=== PATIENT | female | born 1970 | race Caucasian/White ===

== ENCOUNTER 2016-10-14 05:45 | Inpatient (IN) | payer OTHER ==
[~2016-10-14] VITALS: Ht 170.2 cm; Wt 94.3 kg
[~2016-10-14 05:45] MED LIST: AMBI10TA PO; LO LTAB PO; NAPR500T PO
[2016-10-14] MEDS ORDERED: LR 1,000 ML IV SCH ×3 (06:00→11:15)
[2016-10-14 06:15] LABS: MEAN CORPUSCULAR HEMOGLOBIN 30.1 pg (27.0-33.0); MEAN CORPUSCULAR HGB CONC 33.9 g/dl (32.0-36.5); MEAN CORPUSCULAR VOLUME 88.8 fl (80.0-96.0); RED CELL DISTRIBUTION WIDTH 12.4 % (11.5-14.5); WHITE BLOOD COUNT 5.6 K/mm3 (4.0-10.0)
[2016-10-14] MEDS ORDERED: ceFAZolin 1GM INJ (J0690) As Ordered ONE (06:15)
[2016-10-14 06:29] LABS: CONTROL LINE HCG INT CTR LINE PRESENT
[2016-10-14] MEDS ORDERED: ROCURONIUM BROMIDE 50 MG/5 ML VIAL As Ordered ONE ×2 (07:14→08:50)
[2016-10-14] MEDS ORDERED: BUPIVACAINE HCL 0.25% 30 ML VIAL As Ordered ONE (07:14)
[2016-10-14] MEDS ORDERED: LIDOCAINE 2% INJ 100 MG/5 ML SDV (FOR ANES.) As Ordered ONE (07:14)
[2016-10-14] MEDS ORDERED: PROPOFOL 200 MG/20 ML VIAL As Ordered ONE (07:14)
[2016-10-14] MEDS ORDERED: MIDAZOLAM INJ 2 MG/2 ML VIAL (J2250) As Ordered ONE (07:15)
[2016-10-14] MEDS ORDERED: fentaNYL 250 MCG/5 ML INJECTION (J3010) As Ordered ONE (07:15)
[2016-10-14] MEDS ORDERED: SCOPOLAMINE 1.5 MG TRANSDERMAL As Ordered ONE (07:19)
[2016-10-14] MEDS ORDERED: ceFAZolin SOD 1 GM in D5W MINI-BAG PLUS 50 ML IV ONE (07:30)
[2016-10-14] MEDS ORDERED: ONDANSETRON 4MG/2ML VIAL (J2405) As Ordered ONE (07:55)
[2016-10-14] MEDS ORDERED: METOCLOPRAMIDE INJ 10MG/2ML VIAL (J2765) As Ordered ONE (07:55)
[2016-10-14] MEDS ORDERED: NEOSTIGMINE 1MG/ML 5 ML SYRINGE (J2710) As Ordered ONE (07:55)
[2016-10-14] MEDS ORDERED: KETOROLAC 60 MG/2 ML VIAL (J1885) As Ordered ONE (07:55)
[2016-10-14] MEDS ORDERED: GLYCOPYRROLATE INJ 0.2 MG/ML 2 ML VIAL As Ordered ONE (07:55)
[2016-10-14] MEDS ORDERED: BUPIVACAINE HCL 0.25% 30 ML VIAL XX ONE (08:05)
[2016-10-14] MEDS ORDERED: dexameTHASONE 4 MG/ML 1ML VIAL (J1100) As Ordered ONE (08:11)
[2016-10-14] MEDS ORDERED: HYDROmorphone HCL 2 MG/ML 1ML VIAL (J1170) As Ordered ONE (08:53)
[2016-10-14] MEDS: DOCUSATE SODIUM 100 MG CAP PO SCH ×2 (09:00→21:22)
[2016-10-14] MEDS ORDERED: METHYLENE BLUE 1% 10 ML VIAL (Q9968) As Ordered ONE (09:39)
[2016-10-14] MEDS ORDERED: HYDROmorphone HCL 1 MG/ML SYRINGE (J1170) IV PRN (10:45)
[2016-10-14] MEDS ORDERED: ONDANSETRON 4MG/2ML VIAL (J2405) IV PRN ×2 (10:45→11:45)
[2016-10-14] MEDS ORDERED: PERCOCET 5MG/325MG TAB PO PRN ×2 (10:45→11:45)
[2016-10-14] MEDS ORDERED: fentaNYL 100 MCG/2 ML INJECTION (J3010) As Ordered ONE (10:56)
[2016-10-14] MEDS: fentaNYL 100 MCG/2 ML INJECTION (J3010) IV PRN ×4 (10:57→11:12)
[2016-10-14] MEDS ORDERED: SCOPOLAMINE 1.5 MG TRANSDERMAL TOP ONE (11:15)
[2016-10-14] MEDS ORDERED: PROMETHAZINE INJ 25 MG/ML VIAL (J2550) IV PRN (11:45)
[2016-10-14 12:30] VITALS: BP 159/79
[2016-10-14] MEDS: PERCOCET 5MG/325MG TAB PO PRN ×2 (12:55→16:35)
[2016-10-14 13:00] VITALS: BP 156/78
[2016-10-14 14:00] VITALS: BP 119/71
[2016-10-14] MEDS: KETOROLAC 30 MG/ML VIAL (J1885) IV SCH ×2 (14:00→20:02)
[2016-10-14] MEDS: LR 1,000 ML IV SCH ×2 (14:53→19:37)
[2016-10-14 15:00] VITALS: BP 131/81
[2016-10-14 17:56] VITALS: BP 144/88
--- NOTE | 2016-10-14 19:49 | RO ---
DATE OF PROCEDURE: 10/14/2016 PREOPERATIVE DIAGNOSES: 1. Symptomatic fibroid uterus. 2. Abnormal uterine bleeding. POSTOPERATIVE DIAGNOSES: 1. Symptomatic fibroid uterus. 2. Abnormal uterine bleeding. PROCEDURES PERFORMED: 1. Diagnostic laparoscopy. 2. Total abdominal hysterectomy. 3. Cystoscopy. SURGEON: Shanti De Los Santos MD POLICY MANAGER: Tyrell Campo MD ANESTHESIA: General endotracheal. ESTIMATED BLOOD LOSS: 300 mL. INTRAVENOUS (IV) FLUIDS: 1100 mL lactated Ringer's. URINE OUTPUT: 300 mL. CONDITION: Stable. COMPLICATIONS: None. SPECIMEN: Uterus, fallopian tubes, cervix. ANTIBIOTICS: Ancef 1 gram IV times one prior to skin incision. INDICATION: The patient is a 46-year-old female with symptomatic fibroid uterus desiring definitive surgical management. FINDINGS: Approximately 12 weeks size multi-fibroid uterus. Normal tubes and ovaries bilaterally. DESCRIPTION OF PROCEDURE: The risks, benefits, indications and alternatives of procedure were reviewed with the patient and informed consent was obtained. The patient was taken to the operating room where general anesthesia was obtained without difficulty. The patient was then placed in the lithotomy position using Bhavin stirrups and the arms were tucked with padding. Exam under anesthesia was performed, significant for the above-noted findings. She was then prepped and draped in the normal sterile fashion and a Rojas catheter was placed. Sterile speculum was placed in the patient's vagina and the cervix was visualized. Single-tooth tenaculum was then used to grasp the anterior lip of the cervix. The VCare uterine manipulator with a colpotomy ring and a vaginal occluder balloon was placed to provide a means for manipulation of the uterus. The speculum was then removed from the vagina. Attention was then turned to the patient's abdomen where a 5 mm skin incision was made in the lower margin of the umbilicus. 5 mm trocar and sleeve were then carefully introduced into the peritoneal cavity under direct visualization at a 90 degree angle while tenting up the abdominal wall. Intraperitoneal placement was confirmed under direct visualization with the laparoscope with entry pressure less than 5 mmHg. The pneumoperitoneum was obtained with several liters of CO2 gas, maximum pressure of 15 mmHg. Upon entry into the peritoneal cavity, structures immediately below the incision were inspected and found to be free of injury. The patient's abdomen and pelvis was notable for the above findings. Two additional port sites including a 5 mm left lower quadrant and 5 mm right lower quadrant port site were placed under direct laparoscopic guidance, stabilizing the uterus with the manipulator. There was an attempt to use the Harmonic scalpel to ligate the round ligaments and develop the bladder flap. However, given the minimal amount of uterine manipulation and due to the large size of the uterus and the large anterior fibroids obstructing the view, the decision was made to proceed to an open procedure. The laparoscope was removed and CO2 gas was removed from the abdomen and all laparoscopic trocars were removed from the abdomen. Attention was then turned to the lower abdomen where a Pfannenstiel skin incision was then made and carried down to the underlying layer of fascia using electrocautery. The fascia was then entered with Bovie cautery and extended bilaterally. The underlying rectus fascia and muscle layers were then in midline. The peritoneum identified, grasped with two hemostats and entered sharply with Metzenbaum scissors. Peritoneal incision was then extended inferiorly using Bovie cautery. A window was created in the avascular plane of the broad ligament below and parallel to IP ligament, above the ureter, the fallopian tube and the utero-ovarian ligaments were then doubly clamped as close as possible to the uterine corpus, transected and suture ligated with #0-Vicryl on both sides. Pedicles were then re-inspected with excellent hemostasis noted. The bladder was then gently dissected off the lower uterine segment and cervix using a sponge stick until the endopelvic fascia was visualized. The uterine arteries were then identified along the lateral aspect of the uterus at the level of the isthmus and skeletonized. The uterine arteries were then doubly clamped, transected and suture ligated on both sides. Hemostasis was assured. The cardinal ligaments were then clamped, transected and suture ligated bilaterally. Finally the uterosacral ligaments were clamped, transected and suture ligated bilaterally. Hemostasis was noted. Curved clamps were placed across the vagina just under the cervix and the uterus and cervix were amputated using Geovanny scissors. The anterior posterior vaginal cuff edges were then grasped with Manjula clamps. The vaginal cuff angles were closed and transfixed to the ipsilateral uterosacral and cardinal ligaments. The remainder of the cuff was closed using #0-Vicryl in an interrupted fashion with care given to incorporate the anterior pubocervical fascia and the posterior rectovaginal fascia. The attention was then turned to the right fallopian tube which was then grasped with two Miko clamps. The mesosalpinx was then clamped using a curved Tariq clamp and the fallopian tube was then dissected off. The pedicle was then tied off with an #0-Vicryl. The same procedure was performed on the on the left fallopian tube. The abdomen was copiously irrigated with warm saline. All pedicles were noted to be hemostatic. Attention was then turned to the bladder. The Rojas catheter was removed and the cystoscope was then primed and advanced through the urethra and into the bladder. Both ureteral orifices were identified and bilateral efflux of methylene blue stained urine was visualized. A survey of the bladder showed no defects or visible suture. The cystoscope was then removed and the Rojas catheter replaced to drain the bladder. All instruments were then removed from the abdomen. The fascia was reapproximated with #0 Vicryl in a running fashion. The subcutaneous tissue was reapproximated using #3-0 Vicryl in an interrupted fashion. The skin was closed with #4-0 Monocryl in a running fashion. A manual exam was then performed, and the vagina demonstrated excellent suspension and elevation. A vaginal sweep was then performed, confirmed no retained foreign objects in the remainder of the vagina. At the completion of the case, sponge, lap and needle counts were correct times two. The patient was taken to the postanesthesia care unit (PACU) in stable condition.
[2016-10-14 23:05] VITALS: BP 119/75
[2016-10-15] MEDS: PERCOCET 5MG/325MG TAB PO PRN ×2 (01:07→22:29)
[2016-10-15] MEDS: KETOROLAC 30 MG/ML VIAL (J1885) IV SCH ×2 (02:16→07:46)
[2016-10-15 02:24] VITALS: BP 109/71
[2016-10-15] MEDS: LR 1,000 ML IV SCH (03:37)
[2016-10-15 06:30] VITALS: BP 108/66
[2016-10-15 07:08] LABS: BASO % 0.4 % (0.0-1.0); EOS # 0.1 K/mm3 (0.0-0.50); EOS % 1.2 % (0.0-3.0); LARGE UNSTAINED CELL # 0.1 K/mm3 (0.0-0.4); LARGE UNSTAINED CELL % 1.2 % (0.0-4.0); LYMPH # 3.1 K/mm3 (1.5-4.5); LYMPH % 35.1 % (24.0-44.0); MEAN CORPUSCULAR HGB CONC 33.1 g/dl (32.0-36.5); MEAN CORPUSCULAR VOLUME 90.6 fl (80.0-96.0); MONO # 0.5 K/mm3 (0.0-0.8); MONO % 5.7 % (0.0-5.0); NEUTROPHILS # 4.8 K/mm3 (1.8-7.7); NEUTROPHILS % 56.5 % (36.0-66.0); PLATELET COUNT, AUTOMATED 277 k/mm3 (150-450); RED CELL DISTRIBUTION WIDTH 12.9 % (11.5-14.5); WHITE BLOOD COUNT 8.5 K/mm3 (4.0-10.0)
[2016-10-15] MEDS: DOCUSATE SODIUM 100 MG CAP PO SCH ×2 (07:46→21:00)
[2016-10-15] MEDS ORDERED: SLF 3 ML SYR IV PRN (09:30)
[2016-10-15 10:14] VITALS: BP 117/57
[2016-10-15] MEDS: SLF 3 ML SYR IV SCH ×2 (14:00→22:00)
[2016-10-15 14:35] VITALS: BP 89/47
[2016-10-15] MEDS: IBUPROFEN 800 MG TAB PO SCH (16:04)
[2016-10-15 18:14] VITALS: BP 109/63
[2016-10-15 22:39] VITALS: BP 132/82
[2016-10-16] MEDS: IBUPROFEN 800 MG TAB PO SCH ×2 (00:38→09:00)
[2016-10-16 02:22] VITALS: BP 114/61
[2016-10-16 05:56] VITALS: BP 113/59
[2016-10-16] MEDS: SLF 3 ML SYR IV SCH (06:00)
[2016-10-16] MEDS: DOCUSATE SODIUM 100 MG CAP PO SCH (09:00)
[2016-10-16] MEDS ORDERED: COLA100C PO (10:27)
[2016-10-16] MEDS ORDERED: OXYC1TAB23 PO (10:28)
[2016-10-16] MEDS ORDERED: MOTR200T44 PO (10:30)
[2016-10-17] MEDS ORDERED: **NOTE PATIENT COMMENT** MISC XX ONE (07:00)
== END 2016-10-16 12:45 | disposition home or self-care (01) | DRG 743 ==
LOC: M OR 05:45 → M OBS 12:37
PROVIDERS: ADMIT Obstetrics & Gynecology; ATTEND Obstetrics & Gynecology
PROC: 0UTC0ZZ Resection of Cervix, Open Approach (ICD-10-PCS; 2016-10-14)
PROC: 0UT70ZZ Resection of Bilateral Fallopian Tubes, Open Approach (ICD-10-PCS; 2016-10-14)
PROC: 0TJB8ZZ Inspection of Bladder, Via Natural or Artificial Opening Endoscopic (ICD-10-PCS; 2016-10-14)
PROC: 0UT90ZZ Resection of Uterus, Open Approach (ICD-10-PCS; principal; 2016-10-14 07:30)
DX: D25.1 Intramural leiomyoma of uterus (principal); N93.9 Abnormal uterine and vaginal bleeding, unspecified